=== PATIENT | male | born 1985 | race Caucasian/White ===

== ENCOUNTER 2025-02-09 16:09 | Emergency (ER) | payer SELFPAY ==
[2025-02-09] MEDS ORDERED: Ondansetron PF 4 MG/2 ML Vial ONE (18:00)
[2025-02-09] MEDS ORDERED: Ketorolac Tromethamine 30 MG (1 mL) VIAL ONE (18:00)
[2025-02-09 18:02] LABS: #Basophils 0.1 thou/uL (0.0-0.2); #Eosinophils 0.2 thou/uL (0.0-0.7); #Lymphocytes 3.4 thou/uL (1.20-3.40); #Monocytes 0.5 thou/uL (0.11-0.59); #Neutrophils 2.9 thou/uL (1.40-6.50); %Basophils 1.2 % (0.0-1.0); %Eosinophils 3.4 % (0.0-10.0); %Lymphocytes 48.2 % (21.0-51.0); %Monocytes 7.0 % (0.0-10.0); %Neutrophils 40.1 % (42.0-75.0); Hematocrit 49.6 % (42.0-52.0); Hemoglobin 16.1 g/dL (14.0-18.0); Mean Corpuscular Hemoglobin 29.3 pg (27.0-31.0); Mean Corpuscular Volume 90.3 fl (78.0-98.0); Platelet Count 252 10x3/uL (130-400); Red Blood Cell (RBC) Count 5.50 mill/uL (4.70-6.10); White Blood Cell (WBC) Count 7.1 10x3/uL (4.8-10.8)
[2025-02-09 18:14] LABS: ALT (SGPT) 20 U/L (Less than 45); AST (SGOT) 31 U/L (11-34); Albumin 4.0 g/dL (3.1-4.5); Alkaline Phosphatase 59 U/L (40-110); Anion Gap 16 mmol/L (10-20); BUN (Urea Nitrogen) 10 mg/dL (8.9-20.6); Bicarbonate (HCO3v) 25.0 mmol/L (22.0-28.0); Bilirubin, Total 0.6 mg/dL (0.3-1.2); CO2 Tension (PvCO2) 50.9 mmHg (42.0-51.0); Calc. Creatinine Clearance 0 mL/min (70-130); Calcium 8.6 mg/dL (7.8-10.44); Calcium, Ionized 1.14 mmol/L (1.15-1.33); Carbon Dioxide 21 mmol/L (22-29); Chloride 110 mmol/L (98-107); Chloride 117 mmol/L (98-107); Globulin 2.5 g/dL (2.4-3.5); Glucose 88 mg/dL (70-105); Hemoglobin - Calc 15.6 g/dL (14.0-18.0); Potassium 3.1 mmol/L (3.5-5.1); Potassium 3.4 mmol/L (3.5-5.1); Sodium 144 mmol/L (136-145); Sodium 144 mmol/L (138-145); T. Carbon Dioxide 26.6 mmol/L (22.0-28.0); vO2 Saturation-calc 99.2 % (60.0-85.0)
[2025-02-09 18:15] LABS: Acetaminophen Less than 10 mcg/mL (Less than 10); Magnesium 2.4 mg/dL (1.6-2.6); Salicylate Less than 8.0 mg/dL (Less than 8.0)
[2025-02-09] MEDS ORDERED: Potassium Chloride 20 MEQ (100 mL) BAG ONE (19:06)
[2025-02-09] MEDS ORDERED: NS 0.9% w/ 20 MEQ KCL 1,000 ML ONE (19:06)
[2025-02-09] MEDS ORDERED: levETIRAcetam 500 MG (5 mL) VIAL ONE (21:12)
[2025-02-09] MEDS ORDERED: Acetaminophen 500 MG TAB ONE (21:21)
== END 2025-02-09 22:10 | disposition home or self-care (01) ==
LOC: MADERS 16:09
DX: S06.0XAA Concussion with loss of consciousness status unknown, initial encounter (principal); S02.40FA Zygomatic fracture, left side, initial encounter for closed fracture; S01.112A Laceration without foreign body of left eyelid and periocular area, initial encounter; G40.409 Other generalized epilepsy and epileptic syndromes, not intractable, without status epilepticus; F10.129 Alcohol abuse with intoxication, unspecified; E87.6 Hypokalemia; Z91.148 Patient's other noncompliance with medication regimen for other reason; Y04.2XXA Assault by strike against or bumped into by another person, initial encounter
CPT/HCPCS: 70450; 70486; 72125; 80053; 80307; 82330; 82435; 82803; 83735; 84132; 84295; 85014; 85025; 90471; 93005; 96365; 96366; 96367; 96375; 96376; J1885; J1953; J2405; J3411; J3480; J7120